=== PATIENT | male | born 1980 | race Two or more races ===

== ENCOUNTER 2024-06-16 13:16 | Inpatient (IN) | payer BC ==
[~2024-06-16] VITALS: Ht 172.7 cm; Wt 104.3 kg
[2024-06-16] MEDS ORDERED: CARVEDILOL25 MG (13:22)
[2024-06-16] MEDS ORDERED: LOSARTAN POTASS50 MG (13:22)
--- NOTE | 2024-06-16 13:22 | NUR ---
PACIENTE MASCULINO ALERTA Y ORIENTADO X3, REFIERE TENER DIFICULTAD AL RESPIRAR, LA HEMOGLOBINA 6 Y TAMBIEN VERBALIZA TENER EDEMA EN AMBAS PIERNAS.
[2024-06-16] MEDS ORDERED: SODIUM CHLORIDE 0.45 % 1,000 ML IV SCH (13:45)
[2024-06-16 14:11] LABS: ABG PH 7.431 (7.35-7.45); ABG PO2 170.3 mmHg (80-100); ABG pCO2 30.1 mmHg (35-45); BASE EXCESS -3.4 mmol/l; BICARBONATE 19.6 mmol/l (23-25); SaO2 99.5 %; Tco2 20.5 mmol/l
--- NOTE | 2024-06-16 14:38 | NUR ---
SE UBICA PACIENTE EN UNIDAD DE CRITICO, SE CONECTA A MONITOR CARDIACO Y OXIMETRIA DE PULSO. PACIENTE CON NON REBREATHING 100% DESDE AMBULANCIA. SE COLECTAN MUESTRAS DE LABORATORIO Y SE CANALIZA A PACIENTE BAJO MEDIDAS ASEPTICAS. SE COLOCAN IVF'S CRISTIANA ORDEN MEDICA. SE REALIZA EKG Y SE PRESENTA A DR MACIAS. SE COLOCA SONDA URINARIA BAJO MEDIDAS ESTERILES Y SE COLOCA A GRAVEDAD. SE OBSERVA EGRESO URINARIO AMARILLO JT. PERSONAL DE TERAPIA RESPIRATORIA REALIZA ABGS. PERSONAL DE RADIOLOGIA REALIZA X-RAY.
[2024-06-16 15:05] LABS: COVID-19 AG NEGATIVE (NEGATIVE)
[2024-06-16 15:06] LABS: INFLUENZA A AG NEGATIVE (NEGATIVE)
[2024-06-16 15:20] LABS: BILIRUBIN TOTAL 0.95 mg/dL (0.3-1.2); CREATININE SERUM 1.77 mg/dL (0.70-1.30); GFR 41.81; GLOBULINA 3.8 G/DL (2.4-3.5); POTASSIUM 4.76 mEq/L (3.5-5.1); TOTAL PROTEIN 6.8 gm/dL (6.4-8.2)
[2024-06-16 15:22] LABS: MEAN CORPUSCULAR HGB CONC 29.7 g/dl (32.0-36.0); RED BLOOD COUNT 3.41 M/uL (4.00-6.00); RED CELL DISTRIBUTION WIDTH 19.8 % (11.5-14.5)
[2024-06-16 15:23] LABS: o2 100 %
[2024-06-16 15:24] LABS: allen test SATISFACTORY; mode NON REBREATHING MASK; puncture site RADIAL RIGHT
[2024-06-16] MEDS ORDERED: NITROGLYCERIN IN 5 % DEXTROSE 50 MG/250 ML BOTTLE IV ONE (15:36)
[2024-06-16] MEDS ORDERED: FUROsemide 20 MG/2 ML VIAL ONE ×2 (15:36→18:53)
[2024-06-16 15:46] LABS: PH,URINE 5.5 (5.0-8.0); URINE APPEARANCE Cloudy; URINE BILIRRUBIN Negative (NEGATIVE); URINE BLOOD Trace; URINE COLOR Yellow; URINE GLUCOSE Negative (NEGATIVE); URINE KETONE Negative (NEGATIVE); URINE LEUKOCYTE Negative; URINE NITRATE Negative
[2024-06-16 15:49] LABS: URINE BACTERIA 315.7 uL (0.0-1933); URINE CAST 12.81 uL (0.0-1.40); URINE EPITHELIAL CELLS 18.3 uL (0.0-38.8); URINE RBC 5.3 uL (0.0-20.8); URINE WBC 15.6 uL (0.0-23.2)
[2024-06-16 15:58] LABS: MEAN CELL VOLUME 61.8 fL (80.0-100.00); MEAN CORPUSCULAR HEMOGLOBIN 18.4 pg (27.00-32.0)
[2024-06-16 15:59] LABS: HEMOGLOBIN 6.3 g/dL (13-16.00); PLATELET COUNT 126 K/uL (150-450)
[2024-06-16] MEDS ORDERED: FUROsemide 20 MG/2 ML VIAL IV SCH ×2 (16:00→17:31)
[2024-06-16] MEDS ORDERED: NITROGLYCERIN 250 ML IV SCH (16:00)
[2024-06-16] MEDS ORDERED: FUROsemide 20 MG/2 ML VIAL IV ONE (16:00)
--- NOTE | 2024-06-16 16:02 | NUR ---
SE RECIBE PTE ALERTA Y ORIENTADO X 3 ESFERAS EN CAMA CON BARANDAS ELEVADAS,CONECTADO A MONITOR CARDIACO Y OXIMETRIA,PRESENTA FATIGA Y USO DE MUSCULOS ACCESORIOS.AL MOMENTO MS FALU DE TERAPIA RESP COLOCANDO BPAP.PTE TOLERA EL MISMO.PRESENTE EDEMA EN AMBAS PIERNAS.CANALIZADO EN BRAZO RT CON FLUIDOS DE MANTENIMIENTO,SE LE ADMINISTRA DRIP DE TRIDIL @ 3ML/HR POR IVPUMP,CRISTIANA ORDEN MEDICA.SE REALIZA REQUISICION PARA 3 UNIDADES DE PRBC FRACC. SE ISADORA PTE BAJO OBSERVACION POR CAMBIOS.
[2024-06-16 16:20] LABS: PARTIAL THROMBOPLASTIN TIME 69.4 SECONDS (22.0-34.0); PROTHROMBIN TIME > 90.0 SECONDS (9.0-11.5)
[2024-06-16 16:30] LABS: URINE PROTEIN 300 (NEGATIVE)
[2024-06-16] MEDS ORDERED: ACETAMINOPHEN 500 MG GEL..CAP PO PRN (17:30)
[2024-06-16] MEDS ORDERED: PHYTONADIONE 10 MG/ML AMPUL IV ONE (17:30)
[2024-06-16] MEDS ORDERED: PANTOPRAZOLE SODIUM 40 MG/VIAL VIAL IV SCH (17:31)
[2024-06-16] MEDS ORDERED: IPRATROPIUM BROMIDE 0.5 MG/2.5 ML AMPUL.NEB IH SCH (17:41)
[2024-06-16] MEDS ORDERED: NITROGLYCERIN IN 5 % DEXTROSE 250 ML IV SCH ×2 (17:45→19:00)
[2024-06-16] MEDS ORDERED: PHYTONADIONE 10 MG/ML AMPUL ONE (18:53)
[2024-06-16 19:02] LABS: D DIMER 0.66 MG/L
[2024-06-16 19:05] LABS: ALBUMIN 2.7 gm/dL (3.4-5.0); BILIRUBIN TOTAL 0.97 mg/dL (0.3-1.2); BILIRUBIN,CONJUGATED 0.32 mg/dL (0.0-0.2); BILIRUBIN,UNCONJUGATED 0.65 mg/dL (0.0-0.6); PHOSPHOROUS 3.4 mg/dL (2.5-4.9); TOTAL PROTEIN 6.7 gm/dL (6.4-8.2)
[2024-06-16 19:19] LABS: C-REACTIVE PROTEIN 5.62 MG/DL (0.00-0.29)
[2024-06-16] MEDS ORDERED: ACETAMINOPHEN 500 MG GEL..CAP PO ONE (20:29)
[2024-06-16 22:06] VITALS: BP 97/47; O2SAT 99
[2024-06-16 23:04] VITALS: BP 111/57; O2SAT 100
[2024-06-17] VITALS (17 sets, daily range): BP systolic 103–149; BP diastolic 50–79; O2SAT 99–100
[2024-06-17] MEDS ORDERED: ACETAMINOPHEN 500 MG GEL..CAP PO ONE (05:06)
[2024-06-17] MEDS ORDERED: ATORVASTATIN CALCIUM 40 MG TABLET PO SCH (09:00)
[2024-06-17 10:39] LABS: INR 1.36; PARTIAL THROMBOPLASTIN TIME 34.7 SECONDS (22.0-34.0); PROTHROMBIN TIME 14.5 SECONDS (9.0-11.5)
[2024-06-17] MEDS ORDERED: FUROsemide 20 MG/2 ML VIAL ONE (20:58)
[2024-06-18] VITALS (22 sets, daily range): BP systolic 110–166; BP diastolic 54–92; O2SAT 95–100
[2024-06-18] MEDS ORDERED: ACETAMINOPHEN 500 MG GEL..CAP PO ONE (00:23)
[2024-06-18] MEDS ORDERED: FUROsemide 20 MG/2 ML VIAL ONE (00:54)
[2024-06-18] MEDS ORDERED: FUROsemide 20 MG/2 ML VIAL IV SCH ×2 (01:00→21:00)
[2024-06-18] MEDS ORDERED: DIATRIZOATE MEGLUMINE, SODIUM 30 ML BOTTLE PO STA (08:37)
[2024-06-18] MEDS ORDERED: METOPROLOL SUCCINATE 25 MG TAB.SR.24H PO SCH (09:00)
[2024-06-18] MEDS ORDERED: FUROsemide 40 MG/4 ML VIAL IV SCH (09:00)
[2024-06-18 10:07] LABS: HEMATOCRIT 30.1 % (39.0-48.0); MEAN CORPUSCULAR HGB CONC 31.4 g/dl (32.0-36.0); RED BLOOD COUNT 4.44 M/uL (4.00-6.00)
[2024-06-18 10:12] LABS: MEAN CELL VOLUME 67.6 fL (80.0-100.00); MEAN CORPUSCULAR HEMOGLOBIN 21.1 pg (27.00-32.0)
[2024-06-18 10:13] LABS: HEMOGLOBIN 9.4 g/dL (13-16.00)
[2024-06-18 10:14] LABS: PLATELET COUNT 88 K/uL (150-450)
[2024-06-18 11:04] LABS: RED CELL DISTRIBUTION WIDTH 26.1 % (11.5-14.5)
[2024-06-18] MEDS ORDERED: ENOXAPARIN SODIUM 100 MG/ML SYRINGE SUBCUTANEO NR (18:00)
[2024-06-19] VITALS (15 sets, daily range): BP systolic 116–159; BP diastolic 71–92; O2SAT 97–100
[2024-06-19 08:02] LABS: ALBUMIN 2.8 gm/dL (3.4-5.0); BILIRUBIN TOTAL 1.23 mg/dL (0.3-1.2); CALCIUM 8.5 mg/dL (8.5-10.1); CREATININE SERUM 1.95 mg/dL (0.70-1.30); GFR 37.39; GLOBULINA 4.1 G/DL (2.4-3.5); MAGNESIUM 1.9 mg/dL (1.8-2.4); POTASSIUM 3.74 mEq/L (3.5-5.1); TOTAL PROTEIN 6.9 gm/dL (6.4-8.2)
[2024-06-19] MEDS ORDERED: ENOXAPARIN SODIUM 100 MG/ML SYRINGE SUBCUTANEO SCH ×2 (09:00→17:00)
[2024-06-19] MEDS ORDERED: IPRATROPIUM BROMIDE 0.5 MG/2.5 ML AMPUL.NEB IH SCH (09:00)
[2024-06-19 09:32] LABS: HEMATOCRIT 31.1 % (39.0-48.0); MEAN CORPUSCULAR HEMOGLOBIN 21.9 pg (27.00-32.0); MEAN CORPUSCULAR HGB CONC 31.7 g/dl (32.0-36.0); RED BLOOD COUNT 4.52 M/uL (4.00-6.00)
[2024-06-19 10:24] LABS: HEMOGLOBIN 9.9 g/dL (13-16.00); MEAN CELL VOLUME 68.9 fL (80.0-100.00); RED CELL DISTRIBUTION WIDTH 26.6 % (11.5-14.5)
[2024-06-19 10:25] LABS: PLATELET COUNT 83 K/uL (150-450)
[2024-06-19] MEDS ORDERED: GUAIFENESIN 200 MG/10 ML BLIST.PACK PO SCH (12:00)
[2024-06-19] MEDS ORDERED: ISOSORBIDE DINITRATE 5 MG TABLET PO SCH (14:28)
[2024-06-19] MEDS ORDERED: BENZONATATE 200 MG CAPSULE PO SCH (17:00)
[2024-06-20] VITALS (7 sets, daily range): BP systolic 109–134; BP diastolic 71–78; O2SAT 96–98
[2024-06-20] MEDS ORDERED: METOPROLOL SUCCINATE 25 MG TAB.SR.24H PO SCH (09:00)
[2024-06-21] VITALS (9 sets, daily range): BP systolic 122–142; BP diastolic 75–93; O2SAT 90–98
[2024-06-21 07:25] LABS: MEAN CORPUSCULAR HGB CONC 31.6 g/dl (32.0-36.0); RED BLOOD COUNT 4.58 M/uL (4.00-6.00)
[2024-06-21 07:30] LABS: HEMOGLOBIN 9.8 g/dL (13-16.00); MEAN CELL VOLUME 67.7 fL (80.0-100.00); MEAN CORPUSCULAR HEMOGLOBIN 21.3 pg (27.00-32.0); PLATELET COUNT 104 K/uL (150-450); RED CELL DISTRIBUTION WIDTH 26.3 % (11.5-14.5)
[2024-06-21] MEDS ORDERED: PANTOPRAZOLE SODIUM 40 MG TABLET.DR PO SCH (09:00)
[2024-06-21 12:10] LABS: INR 1.33; PROTHROMBIN TIME 14.2 SECONDS (9.0-11.5)
[2024-06-21] MEDS ORDERED: WARFARIN SODIUM 5 MG TABLET PO SCH (21:00)
[2024-06-22] VITALS (7 sets, daily range): BP systolic 136–158; BP diastolic 85–110; O2SAT 93–100
[2024-06-22] MEDS ORDERED: FUROsemide 20 MG/2 ML VIAL ONE (06:12)
[2024-06-22] MEDS ORDERED: FUROsemide 40 MG/4 ML VIAL ONE (06:13)
[2024-06-22 06:29] LABS: INR 1.42
[2024-06-22] MEDS ORDERED: FUROsemide 40 MG/4 ML VIAL IV STA (06:35)
[2024-06-22 06:38] LABS: PROTHROMBIN TIME 15.1 SECONDS (9.0-11.5)
[2024-06-22 07:02] LABS: ALBUMIN 3.2 gm/dL (3.4-5.0); BILIRUBIN TOTAL 1.22 mg/dL (0.3-1.2); CALCIUM 8.9 mg/dL (8.5-10.1); CREATININE SERUM 1.35 mg/dL (0.70-1.30); GFR 57.15; POTASSIUM 3.8 mEq/L (3.5-5.1); TOTAL PROTEIN 8.2 gm/dL (6.4-8.2)
[2024-06-22] MEDS ORDERED: NITROGLYCERIN 50MG IN NSS (KIT INCLUYE LINEA) IV SCH (07:30)
[2024-06-22] MEDS ORDERED: NITROGLYCERIN IN 5 % DEXTROSE 250 ML IV SCH (07:45)
[2024-06-22] MEDS ORDERED: ISOSORBIDE DINITRATE 10 MG TABLET PO SCH (09:00)
[2024-06-22] MEDS ORDERED: FUROsemide 40 MG/4 ML VIAL IV SCH (09:00)
[2024-06-22 12:38] LABS: ABG PO2 88.6 mmHg (80-100); ABG pCO2 38.4 mmHg (35-45); BASE EXCESS 7.4 mmol/l; BICARBONATE 30.7 mmol/l (23-25); SaO2 97.9 %; Tco2 31.8 mmol/l
[2024-06-22 13:36] LABS: HEMATOCRIT 33.6 % (39.0-48.0); HEMOGLOBIN 10.3 g/dL (13-16.00); MEAN CORPUSCULAR HEMOGLOBIN 20.8 pg (27.00-32.0); MEAN CORPUSCULAR HGB CONC 30.5 g/dl (32.0-36.0); PLATELET COUNT 157 K/uL (150-450); RED BLOOD COUNT 4.92 M/uL (4.00-6.00)
[2024-06-22 13:46] LABS: MEAN CELL VOLUME 68.3 fL (80.0-100.00); RED CELL DISTRIBUTION WIDTH 26.7 % (11.5-14.5)
[2024-06-22 14:18] LABS: CALCIUM 8.4 mg/dL (8.5-10.1); CREATININE SERUM 1.53 mg/dL (0.70-1.30); GFR 49.46; POTASSIUM 3.89 mEq/L (3.5-5.1)
[2024-06-22 15:04] LABS: o2 50 %
[2024-06-22 15:05] LABS: allen test SATISFACTORY; mode VENTURY MASK; puncture site RADIAL RIGHT
[2024-06-22] MEDS ORDERED: CLEVIDIPINE BUTYRATE 50 MG/100 ML VIAL IV SCH (15:30)
[2024-06-22] MEDS ORDERED: CLEVIDIPINE BUTYRATE 100 ML IV SCH (15:30)
[2024-06-22] MEDS ORDERED: PROPOFOL 10,000 MCG/ML VIAL ONE (15:44)
== END 2024-06-22 16:55 | disposition expired ==
LOC: ER 13:16 → ICU-2 17:54 → ICU 06-18 04:01 → MEDI 06-20 13:53 → ICU 06-22 11:40
PROVIDERS: General Practice; Internal Medicine; Internal Medicine Critical Care Medicine; Internal Medicine Nephrology; ADMIT Internal Medicine; ATTEND Internal Medicine
PROC: BW40ZZZ Ultrasonography of Abdomen (ICD-10-PCS; principal; 2024-06-16)
PROC: B246ZZZ Ultrasonography of Right and Left Heart (ICD-10-PCS; 2024-06-16)
PROC: 4A033R1 Measurement of Arterial Saturation, Peripheral, Percutaneous Approach (ICD-10-PCS; 2024-06-16)
PROC: 3E0F7GC Introduction of Other Therapeutic Substance into Respiratory Tract, Via Natural or Artificial Opening (ICD-10-PCS; 2024-06-16)
PROC: 30233N1 Transfusion of Nonautologous Red Blood Cells into Peripheral Vein, Percutaneous Approach (ICD-10-PCS; 2024-06-16)
PROC: BW21ZZZ Computerized Tomography (CT Scan) of Abdomen and Pelvis (ICD-10-PCS; 2024-06-18)
PROC: 4A12X4Z Monitoring of Cardiac Electrical Activity, External Approach (ICD-10-PCS; 2024-06-20)
PROC: B020ZZZ Computerized Tomography (CT Scan) of Brain (ICD-10-PCS; 2024-06-22)
PROC: 0BH17EZ Insertion of Endotracheal Airway into Trachea, Via Natural or Artificial Opening (ICD-10-PCS; 2024-06-22)
PROC: 5A1935Z Respiratory Ventilation, Less than 24 Consecutive Hours (ICD-10-PCS; 2024-06-22)
DX: I11.0 Hypertensive heart disease with heart failure (principal); I50.21 Acute systolic (congestive) heart failure; I21.4 Non-ST elevation (NSTEMI) myocardial infarction; I62.00 Nontraumatic subdural hemorrhage, unspecified; J96.00 Acute respiratory failure, unspecified whether with hypoxia or hypercapnia; I24.9 Acute ischemic heart disease, unspecified; N17.9 Acute kidney failure, unspecified; J81.1 Chronic pulmonary edema; I25.810 Atherosclerosis of coronary artery bypass graft(s) without angina pectoris; I25.10 Atherosclerotic heart disease of native coronary artery without angina pectoris; I46.9 Cardiac arrest, cause unspecified; Z95.2 Presence of prosthetic heart valve; E66.9 Obesity, unspecified; D64.9 Anemia, unspecified; M32.9 Systemic lupus erythematosus, unspecified; I21.9 Acute myocardial infarction, unspecified